=== PATIENT | female | born 1990 | race Caucasian/White ===

== ENCOUNTER 2023-12-29 07:36 | Emergency (ER) | payer BC, SELFPAY ==
[2023-12-29 07:50] VITALS: BP 122/70
--- NOTE | 2023-12-29 08:19 | ED.GENMED ---
History of Present Illness
General
Chief Complaint: Jaw Pain
Source: patient
Exam Limitations: none
Time Seen by Provider: 12/29/23 07:57
Nursing documentation reviewed up to this point in time: agreed with
Travel History
Have you had any contact with someone who has COVID-19?: No
Do you have any symptoms of coronavirus? Fever > 100 degrees, chills, cough, shortness of breath, sore throat, loss of taste or smell, muscle aches, or headache?: No
History of Present Illness
History of Present Illness:
33-year-old female with no significant chronic medical issues presents for evaluation of right jaw pain. Patient reports that she was laying in bed leaning on her left arm against her jaw; she said she yawned and felt a click and pain in the right
side of her jaw and has lost some fluency with movement of the jaw since. She is concerned that she dislocated her jaw. She denies similar symptoms in the past. She denies any other complaints.
Past History
Past History
ED Past Medical History: None
ED Past Surgical History: None
Social History
Tobacco: Non-smoker
Alcohol: None
Drug: None
Personal:
Living: with family
Employment: Not employed
Family History
Family History: Other (Noncontributory)
Review of Systems
Review of Systems
All Other Systems: ROS reviewed and negative except as documented in HPI and ROS
EENT: Reports other (Jaw pain)
Phy Exam
Physical Exam
Physical Exam:
General: Well appearing and non-toxic
HEENT: protecting airway; patient is sitting with her teeth somewhat clenched but is able to fully open the mouth and close with force against a tongue depressor; she has some tenderness of the right TMJ no palpable dislocation; no swelling of the
face on the right side; no skin changes on the right face
Neck: appears supple
CV: No evidence of cyanosis
Resp: No accessory muscle use
Abd: Non-distended
Extremities: No deformities
Neuro: Alert
Psych: Normal affect
Skin: Intact
Scores
Heart Failure Risk
Heart Failure Risk Score: Not Applicable
Heart Score for Chest Pain Patients
STEMI patient?: Not applicable
Withdrawal Assessment of Alcohol
Withdrawal Assessment Completed?: Not applicable
Course
Orders/Labs/Results
Orders:
Orders
12/29/23 08:04
CR Jaw/mandible Comp Min 4 Vw* Urgent
Comment:
Reason For Exam: right TMJ pain--c/f dislocation
12/29/23 09:18
Ketorolac [Toradol] 30 mg IM NOW STA
Vital Signs
Initial and Last Documented VS:
Initial Vital Signs
Temp Pulse Resp BP Pulse Ox
36.7 C 60 16 122/70 98
12/29/23 07:50 12/29/23 07:50 12/29/23 07:50 12/29/23 07:50 12/29/23 07:50
Last Documented Vital Signs
Temp Pulse Resp BP Pulse Ox
36.7 C 60 16 122/70 98
12/29/23 07:50 12/29/23 07:50 12/29/23 07:50 12/29/23 07:50 12/29/23 07:50
MDM/Problems Addressed
Differential Diagnosis Includes:
Jaw dislocation, jaw subluxation, TMJ
MDM/Problems Addressed:
33-year-old female presents with right-sided jaw pain after yawning this morning. She is concerned for possible dislocation. No palpable or obvious dislocation on exam will check an x-ray to evaluate. Reassess after the above.
X-ray shows no evidence of mandibular dislocation. Will treat with NSAIDs for TMJ dysfunction. Will refer to oral surgeon as needed outpatient. She feels comfortable with this plan. Spoke about return precautions and all questions answered.
*Radiology
Radiology exam reviewed: preliminary read by ED provider
*Pulse Oximetry
Patient hypoxic: no
*Critical Care Note
Total Time (30-74mins, 75-104mins- exclusive of procedures): Not Applicable
Data Reviewed
Source: patient
ED Attending Note
-
Portions of this chart may have been created with voice recognition software.� Occasional wrong word or��sound alike� substitutions may have occurred due to the inherent limitations of voice recognition software.
Discharge Plan
Departure
Patient Disposition: Home (Routine Discharge)
Date of Disposition: 12/29/23
Time of Disposition: 09:20
Patient with high blood pressure during this ER visit?: No
Discharge Problem:
TMJ arthralgia
Instructions: Temporomandibular Joint (TMJ) Disorders (DC)
Prescriptions:
No Action
acetaminophen 325 mg Tablet
650 mg PO Q4HPRN PRN (Reason: mild pain) Qty: 20 0RF
ibuprofen 600 mg Tablet
600 mg PO Q6HPRN PRN (Reason: moderate pain/cramps) Qty: 20 0RF
Referrals:
Precious Ness CRNP [Family Provider] -
Raven Fontaine DDS [Active] - As needed (Oral surgeon)
Activity Restrictions/Additional Instructions:
Thank you for visiting the Emergency Department at [facility].
1. Please schedule a follow up appointment as directed. Call first thing tomorrow morning to make an appointment.
2. If indicated, please take your medications as instructed and indicated on discharge paperwork.
3. If any of your symptoms do not improve, or persist, or become more severe within 6-12 hours, please return to the emergency department for further care.
4. Please return to the emergency department if you develop a headache, neck pain/stiffness, fever greater than 100.4F, chest pain, shortness of breath, persistent nausea, vomiting, slurred speech, difficulty walking, numbness/tingling, weakness,
signs of infection or any other symptoms that are worrisome to you.
Please call [phone] if you have any questions.
Interventions
Interventions:
*Risk Screen - Suicide Last Done: 12/29/23 08:58
*General Assessment Last Done: 12/29/23 08:58
*Neglect/Abuse Screening Last Done: 12/29/23 08:58
ED- Fall Risk Assessment Last Done: 12/29/23 08:58
*ED COVID-19 Vaccine History Last Done: 12/29/23 07:50
ED-EENT Assessment Last Done: 12/29/23 08:58
ED- Cardiac Assessment Last Done: 12/29/23 08:58
[2023-12-29 08:58] VITALS: BMI 25.6
[2023-12-29] MEDS: TORADOL 30 MG IM (10:24)
[2023-12-29 10:31] VITALS: BP 112/78
== END 2023-12-29 10:36 | disposition home or self-care (01) ==
LOC: EMR 07:36
PROVIDERS: EMERGENCY PHYSICIAN Emergency Medicine; FAMILY PHYSICIAN Nurse Practitioner Adult Health
DX: M26.621 Arthralgia of right temporomandibular joint (principal); Z88.8 Allergy status to other drugs, medicaments and biological substances
CPT/HCPCS: 99284; 96372; 70110

== ENCOUNTER → 2024-12-25 14:23 | Outpatient (REF) | payer BC, SELFPAY | LOC: PNTC 14:23 | PROVIDERS: ATTENDING PHYSICIAN Obstetrics & Gynecology | DX: Z36.0 Encounter for antenatal screening for chromosomal anomalies (principal) | CPT/HCPCS: 76805 ==

== ENCOUNTER → 2025-02-19 14:33 | Outpatient (REF) | payer BC, SELFPAY | LOC: PNTC 14:33 | PROVIDERS: ATTENDING PHYSICIAN Student in an Organized Health Care Education/Training Program | DX: Z34.90 Encounter for supervision of normal pregnancy, unspecified, unspecified trimester (principal) | CPT/HCPCS: 36415; 86850; 86900; 86901; 96372; J2790 ==

== ENCOUNTER 2025-05-05 06:58 | Observation (INO) | payer BC, SELFPAY ==
[2025-05-05 07:20] VITALS: BP 130/63; BMI 33.3
== END 2025-05-05 10:36 | disposition home or self-care (01) ==
LOC: LDRP 06:58
PROVIDERS: ADMITTING PHYSICIAN Obstetrics & Gynecology
DX: O47.1 False labor at or after 37 completed weeks of gestation (principal); Z3A.38 38 weeks gestation of pregnancy; Z88.1 Allergy status to other antibiotic agents
CPT/HCPCS: 80306; G0378

== ENCOUNTER 2025-05-09 22:23 | Inpatient (IN) | payer BC, SELFPAY ==
[2025-05-09 22:44] VITALS: BP 123/73; BMI 33.3
[2025-05-09 23:58] LABS: Hematocrit 35.2 % (37.0-47.0); Hemoglobin 12.1 g/dL (12.0-16.0); Mean Corp Hgb Conc. 34.4 g/dL (33.0-37.0); Mean Corpuscular Volume 93.4 fL (81.0-99.0); Nucleated Red Blood Cells % 0 %; Platelet Count 168 10^3/uL (130-400); Red Cell Dist. Width 12.4 % (11.5-14.5)
[2025-05-10] MEDS: LR 1000 IV (03:55)
[2025-05-10] MEDS: SUBLIMAZE 100 MCG EPIDURAL (04:13)
[2025-05-10] MEDS: FENTANYL/BUPIVACAINE 100 EPIDURAL (04:14)
[2025-05-10] MEDS: PITOCIN 30 UNITS/NSS 500 ML IV (05:30)
[2025-05-10] MEDS: METHERGINE INJECTION 0.2 MG IM (06:23)
[2025-05-10] MEDS: TRANEXAMIC ACID 100 IV (06:25)
[2025-05-10] MEDS: ZOFRAN 4 MG IV (07:34)
[2025-05-10] MEDS: COLACE PO (07:48)
[2025-05-10] MEDS: PRENATAL PLUS PO (07:48)
[2025-05-10] MEDS: TYLENOL 650 MG PO ×3 (09:15→20:11)
[2025-05-10] MEDS: MOTRIN 600 MG PO ×2 (11:57→20:12)
[2025-05-10] MEDS: COLACE 100 MG PO (20:12)
[2025-05-11] MEDS: TYLENOL 650 MG PO ×2 (04:17→12:00)
[2025-05-11] MEDS: MOTRIN 600 MG PO ×2 (04:18→12:00)
[2025-05-11 04:43] LABS: Hematocrit 30.9 % (37.0-47.0); Hemoglobin 10.5 g/dL (12.0-16.0)
[2025-05-11] MEDS: PRENATAL PLUS 1 TABLET PO (08:30)
[2025-05-11] MEDS: FEOSOL 325 MG PO (08:30)
[2025-05-11] MEDS: COLACE 100 MG PO (08:30)
[2025-05-11] MEDS: ADACEL 0.5 ML IM (11:58)
[2025-05-12 17:15] LABS: Syphilis/T. pallidum Ab Reflex Negative (Negative)
== END 2025-05-11 13:33 | disposition home or self-care (01) | DRG 806 ==
LOC: LDRP 22:23
PROVIDERS: ADMITTING PHYSICIAN Obstetrics & Gynecology
PROC: 10E0XZZ Delivery of Products of Conception, External Approach (ICD-10-PCS; 2025-05-10)
PROC: 0HQ9XZZ Repair Perineum Skin, External Approach (ICD-10-PCS; 2025-05-10)
PROC: 3E0234Z Introduction of Serum, Toxoid and Vaccine into Muscle, Percutaneous Approach (ICD-10-PCS; 2025-05-11)
DX: O69.82X0 Labor and delivery complicated by other cord entanglement, without compression, not applicable or unspecified (principal); O72.1 Other immediate postpartum hemorrhage; Z37.0 Single live birth; Z3A.39 39 weeks gestation of pregnancy; O70.0 First degree perineal laceration during delivery; O26.893 Other specified pregnancy related conditions, third trimester; Z67.11 Type A blood, Rh negative; Z23 Encounter for immunization
CPT/HCPCS: 85014; 85018; 85025; 86780; 86850; 86900; 86901; 90715

== ENCOUNTER 2025-07-10 09:09 | Inpatient (IN) | payer BC, SELFPAY ==
[2025-07-10 02:57] VITALS: BP 128/81
[2025-07-10 03:33] LABS: Urine Character Clear (Clear)
--- NOTE | 2025-07-10 03:42 | ED.GENMED ---
History of Present Illness
<Alberto Mcclain Jr., PA-C - Last Filed: 07/12/25 20:32>
General
Chief Complaint: Abdominal Pain
Source: patient
Exam Limitations: none
Time Seen by Provider: 07/10/25 03:17
Nursing documentation reviewed up to this point in time: agreed with
History of Present Illness
History of Present Illness:
34-year-old female presenting to the emergency department today with concerns of upper abdominal pain rating to the back that woke her from her sleep about 2 hours ago. Associated nausea no vomiting no diarrhea had a uncomplicated vaginal delivery
2 months ago.
Past History
<Alberto Mcclain Jr., PA-C - Last Filed: 07/12/25 20:32>
Past History
ED Past Medical History: None
ED Past Surgical History: None
Social History
Tobacco: Non-smoker
Alcohol: None
Drug: None
Personal:
Living: with family
Employment: Not employed
Family History
Family History: Other (Noncontributory)
Review of Systems
<Alberto Mcclain Jr., PA-C - Last Filed: 07/12/25 20:32>
Review of Systems
Allergies reviewed?: Yes
All Other Systems: ROS reviewed and negative except as documented in HPI and ROS
Phy Exam
<Alberto Mcclain Jr., PA-C - Last Filed: 07/12/25 20:32>
Physical Exam
Physical Exam:
GENERAL: Alert , in no apparent distress
EYE: pupils equal and reactive
NECK: Supple, no significant adenopathy.
ENT: o/p clr, mmm.
CARDIAC: Regular rate and rhythm .
LUNGS: Clear breath sounds bilaterally, no acute respiratory distress, no wheezes/rales/rhonchi
ABDOMEN: Epigastric abdominal pain to palpation no significant right upper quadrant pain negative Marina's remainder of the abdomen soft
NEUROLOGICAL: Alert and oriented, no focal neuro deficits
SKIN: Warm and dry, skin intact.
MUSCULOSKELETAL: No edema, well perfused.
PSYCH: Normal and appropriate interaction.
Course
<Alberto Mcclain Jr., PA-Venancio - Last Filed: 07/12/25 20:32>
Orders/Labs/Results
Orders:
Orders
07/10/25 03:26
Urinalysis Reflex To Culture Urgent
Date Specimen was Collected: 07/10/25
Time Specimen was Collected: 03:24
Urine Microscopic Reflex Cult Urgent
Urine Culture Urgent
JUWAN Source: U
Specimen Description:
Date Specimen was Collected: 07/10/25
Time Specimen was Collected: 03:24
07/10/25 03:29
Ketorolac [Toradol] 7.5 mg IV NOW STA
Ondansetron Injectable [Zofran] 4 mg IV NOW STA
07/10/25 03:31
0.9% Sodium Chloride 1000 ml [Nss] 1,000 ml IV BOLUS
Test Result ONCE
07/10/25 03:36
Complete Blood Count/With Diff Urgent
Comprehensive Metabolic Panel Urgent
HCG, Serum Qualitative Screen Urgent
Lipase Urgent
07/10/25 04:04
Famotidine [Pepcid] 20 mg IV NOW STA
07/10/25 04:54
US Abdomen Complete/Upper Urgent
Comment:
Reason For Exam: RUQ pain
07/10/25 Breakfast
NPO
Allow oral meds: Yes
Allow clear liquids: No
NPO with Ice Chips: No
07/10/25 07:59
Mrcp Without MR [MR Mrcp Without] Routine
Comment:
Reason For Exam: abd pain, dilated CBD
Recent pill cam endoscopy?: No
07/10/25 08:37
GASTROINTESTINAL CONSULT Routine
Consulting Provider: Kami Benoit
Was physician already notified: Yes
Reason for consult: billiary colic
07/10/25 08:39
Admit/Transfer Patient As Directed
Co-Sign Provider:
Level of Care: Inpatient admission
Assign to:: Medical/Surgical
Physician / Group: Finn
Diagnosis: biliary colic
Reason for Hospitalization: biliary colic
Expected length of stay greater than two midnights?: Yes
ELOS- Estimated Length of Stay in days: 2
I certify the patient meets the requirements for IP care: Yes
PRN Pain Medication Management As Directed
May give lesser potent ordered pain med per pt: Yes
preference::
Protocol:: Medication orders for pain may be administered in a
manner that supports deferring to patient preference
when the pt is:
- Requesting an ordered lesser potent pain medication.
Least to most potent pain medications are defined
as: acetaminophen < NSAID < tramadol < opioids
(morphine, oxycodone, hydromorphone).
- Requesting a lesser dose of the same medication IF
ORDERED.
- Requesting a less intrusive route of administration
if both routes are prescribed by the provider (PO <
IV).
07/10/25 08:40
Code Status As Directed
Resuscitation Status: Full Code
07/10/25 08:44
Ondansetron Injectable [Zofran] 4 mg IV Q8HPRN PRN
07/10/25 08:51
Consult Surgery [SURGICAL CONSULT] Routine
Consulting Provider: Bassam Whitlock
Was physician already notified: Yes
Reason for consult: biliary colic
07/10/25 09:00
Flush (0.9% Sodium Chloride) [Flush (Nss)] See Dose Instructions IV PER PROTOCOL
07/10/25 11:45
0.9% Sodium Chloride 1000 ml [Nss] 1,000 ml IV 100 mls/hr
Acetaminophen [Tylenol] 650 mg PO Q4HPRN PRN
Bisacodyl [Dulcolax] 10 mg RECTAL [id number] PRN
Docusate W/Senna [Senokot-S] 1 tablet PO BIDPRN PRN
Ketorolac [Toradol] 10 mg IV Q6HPRN PRN
Morphine Sulfate 2 mg IV Q4HPRN PRN
Polyethylene Glycol Powder [Miralax] 17 grams PO DAILYPRN PRN
07/10/25 11:45
Activity As Directed
Activity Level: Out of Bed-Early Mobility
Pneumatic Compression Sleeves As Directed
Type: Knee high
Vital Signs As Directed
Frequency: Per unit guidelines
DX Deep Vein Thrombosis Video Routine
07/10/25 12:00
Sertraline HCl [Zoloft] 50 mg PO DAILY@1200
Abnormal Lab Results
07/10/25 07/10/25
03:26 03:36
Chloride 108 H mmol/L
(98-107)
Leukocyte Esterase Rfl 2+ A
(Negative)
Urine Bacteria (Reflex) Few A
(Negative)
Urine Albumin (Reflex) 1+ A
(Neg - Trace)
07/10/25 03:36
07/10/25 03:36
Vital Signs
Initial and Last Documented VS:
Initial Vital Signs
Temp Pulse Resp BP Pulse Ox
98.7 F 78 18 128/81 96
07/10/25 02:57 07/10/25 02:57 07/10/25 02:57 07/10/25 02:57 07/10/25 02:57
Last Documented Vital Signs
Temp Pulse Resp BP Pulse Ox
97.8 F 58 16 119/72 98
07/10/25 18:52 07/10/25 18:52 07/10/25 18:52 07/10/25 18:52 07/10/25 18:52
<AILIN Ayala - Last Filed: 07/10/25 07:36>
Orders/Labs/Results
Orders:
Orders
07/10/25 03:26
Urinalysis Reflex To Culture Urgent
Date Specimen was Collected: 07/10/25
Time Specimen was Collected: 03:24
Urine Microscopic Reflex Cult Urgent
Urine Culture Urgent
JUWAN Source: U
Specimen Description:
Date Specimen was Collected: 07/10/25
Time Specimen was Collected: 03:24
07/10/25 03:29
Ketorolac [Toradol] 7.5 mg IV NOW STA
Ondansetron Injectable [Zofran] 4 mg IV NOW STA
07/10/25 03:31
0.9% Sodium Chloride 1000 ml [Nss] 1,000 ml IV BOLUS
Test Result ONCE
07/10/25 03:36
Complete Blood Count/With Diff Urgent
Comprehensive Metabolic Panel Urgent
HCG, Serum Qualitative Screen Urgent
Lipase Urgent
07/10/25 04:04
Famotidine [Pepcid] 20 mg IV NOW STA
07/10/25 04:54
US Abdomen Complete/Upper Urgent
Comment:
Reason For Exam: RUQ pain
07/10/25 Breakfast
NPO
Allow oral meds: Yes
Allow clear liquids: No
NPO with Ice Chips: No
07/10/25 07:59
Mrcp Without MR [MR Mrcp Without] Routine
Comment:
Reason For Exam: abd pain, dilated CBD
Recent pill cam endoscopy?: No
07/10/25 08:37
GASTROINTESTINAL CONSULT Routine
Consulting Provider: Kami Benoit
Was physician already notified: Yes
Reason for consult: billiary colic
07/10/25 08:39
Admit/Transfer Patient As Directed
Co-Sign Provider:
Level of Care: Inpatient admission
Assign to:: Medical/Surgical
Physician / Group: Finn
Diagnosis: biliary colic
Reason for Hospitalization: biliary colic
Expected length of stay greater than two midnights?: Yes
ELOS- Estimated Length of Stay in days: 2
I certify the patient meets the requirements for IP care: Yes
PRN Pain Medication Management As Directed
May give lesser potent ordered pain med per pt: Yes
preference::
Protocol:: Medication orders for pain may be administered in a
manner that supports deferring to patient preference
when the pt is:
- Requesting an ordered lesser potent pain medication.
Least to most potent pain medications are defined
as: acetaminophen < NSAID < tramadol < opioids
(morphine, oxycodone, hydromorphone).
- Requesting a lesser dose of the same medication IF
ORDERED.
- Requesting a less intrusive route of administration
if both routes are prescribed by the provider (PO <
IV).
07/10/25 08:40
Code Status As Directed
Resuscitation Status: Full Code
07/10/25 08:44
Ondansetron Injectable [Zofran] 4 mg IV Q8HPRN PRN
07/10/25 08:51
Consult Surgery [SURGICAL CONSULT] Routine
Consulting Provider: Bassam Whitlock
Was physician already notified: Yes
Reason for consult: biliary colic
07/10/25 09:00
Flush (0.9% Sodium Chloride) [Flush (Nss)] See Dose Instructions IV PER PROTOCOL
07/10/25 11:45
0.9% Sodium Chloride 1000 ml [Nss] 1,000 ml IV 100 mls/hr
Acetaminophen [Tylenol] 650 mg PO Q4HPRN PRN
Bisacodyl [Dulcolax] 10 mg RECTAL [id number] PRN
Docusate W/Senna [Senokot-S] 1 tablet PO BIDPRN PRN
Ketorolac [Toradol] 10 mg IV Q6HPRN PRN
Morphine Sulfate 2 mg IV Q4HPRN PRN
Polyethylene Glycol Powder [Miralax] 17 grams PO DAILYPRN PRN
07/10/25 11:45
Activity As Directed
Activity Level: Out of Bed-Early Mobility
Pneumatic Compression Sleeves As Directed
Type: Knee high
Vital Signs As Directed
Frequency: Per unit guidelines
DX Deep Vein Thrombosis Video Routine
07/10/25 12:00
Sertraline HCl [Zoloft] 50 mg PO DAILY@1200
Abnormal Lab Results
07/10/25 07/10/25
03: 03:36
Chloride 108 H mmol/L
(98-107)
Leukocyte Esterase Rfl 2+ A
(Negative)
Urine Bacteria (Reflex) Few A
(Negative)
Urine Albumin (Reflex) 1+ A
(Neg - Trace)
07/10/25 03:36
07/10/25 03:36
Vital Signs
Initial and Last Documented VS:
Initial Vital Signs
Temp Pulse Resp BP Pulse Ox
98.7 F 78 18 128/81 96
07/10/25 02:57 07/10/25 02:57 07/10/25 02:57 07/10/25 02:57 07/10/25 02:57
Last Documented Vital Signs
Temp Pulse Resp BP Pulse Ox
97.8 F 58 16 119/72 98
07/10/25 18:52 07/10/25 18:52 07/10/25 18:52 07/10/25 18:52 07/10/25 18:52
<Alberto Mcclain Jr. PAFerdinandC - Last Filed: 07/12/25 20:32>
MDM/Problems Addressed
MDM/Problems Addressed:
34-year-old female presenting to the emergency department today with concerns of upper abdominal pain rating to her back that woke her from her sleep a few hours ago. Associated nausea no vomiting. Here reproducible to the epigastric region.
Vital signs normal.
<Alberto Mcclain Jr., PA-C - Last Filed: 07/12/25 20:32>
*Pulse Oximetry
SaO2: 96
Oxygen Mode of Delivery: Room air
<AILIN Ayala - Last Filed: 07/10/25 07:36>
*Radiology
Radiology exam reviewed: radiology read reviewed
*Pulse Oximetry
Patient hypoxic: no
*Critical Care Note
Total Time (30-74mins, 75-104mins- exclusive of procedures): Not Applicable
<AILIN Ayala - Last Filed: 07/10/25 07:36>
Update Note
Update Note:
Received signout from patient. Patient currently feels nauseous still. On exam diver tender in the epigastric area. Denies any chest pain shortness of breath .
[facility] radiology report shows enlargement of the common bile duct at 10 mm. Gallbladder is fully contracted. Patient's labs unremarkable however with continued pain nausea and CBD dilation would recommend admission may need MRCP.
ED Attending Note
<Alberto Mcclain Jr., PA-C - Last Filed: 07/12/25 20:32>
-
Portions of this chart may have been created with voice recognition software.� Occasional wrong word or��sound alike� substitutions may have occurred due to the inherent limitations of voice recognition software.
Discharge Plan
Departure
Patient Disposition: Admit
Date of Disposition: 07/10/25
Time of Disposition: 07:35
Admit to: Med/Surg
Admit to doctor: hospitaist
Presentation/result/management discussed w/ accepting MD/DO: Hospitalist
Patient with high blood pressure during this ER visit?: No
Covid-19: Not Applicable
Discharge Problem:
Acute upper abdominal pain
Interventions
Interventions:
*Risk Screen - Suicide Last Done: 07/10/25 02:57
*General Assessment Last Done: 07/10/25 03:40
*Neglect/Abuse Screening Last Done: 07/10/25 03:25
*ED- Fall Risk Assessment Last Done: 07/10/25 03:25
*ED COVID-19 Vaccine History Last Done: 07/10/25 03:25
*Nursing Disposition Last Done: 07/10/25 11:42
RA-[id number]-Gudqcexkxk Assessment Last Done: 07/10/25 03:40
Discharge Date and Time
Discharge Date/Time: 07/10/25 11:42
[2025-07-10 03:50] LABS: Hematocrit 41.4 % (37.0-47.0); Hemoglobin 14.0 g/dL (12.0-16.0); Mean Corp Hgb Conc. 33.8 g/dL (33.0-37.0); Mean Corpuscular Volume 90.2 fL (81.0-99.0); Nucleated Red Blood Cells % 0 %; Platelet Count 221 10^3/uL (130-400); Red Cell Dist. Width 11.6 % (11.5-14.5)
[2025-07-10 03:55] LABS: HCG, Serum Qualitative Screen Negative
[2025-07-10 04:00] LABS: ALT (SGPT) 33 U/L (0-35); AST (SGOT) 27 U/L (14-36); Albumin 4.5 g/dl (3.5-5.0); Alkaline Phosphatase 84 U/L (38-126); Blood Urea Nitrogen 15 mg/dl (7-17); Calcium 9.2 mg/dl (8.4-10.2); Carbon Dioxide 24 mmol/L (22-30); Chloride 108 mmol/L (98-107); Glucose 99 mg/dl (70-99); Lipase 278 U/L (23-300); Potassium 4.1 mmol/L (3.5-5.1); Sodium 140 mmol/L (135-145); Total Protein 7.2 g/dl (6.3-8.2); eGFR > 60.00
[2025-07-10] MEDS: ZOFRAN 4 MG IV ×2 (04:03→15:36)
[2025-07-10] MEDS: NSS 1000 IV ×2 (04:03→12:08)
[2025-07-10 04:04] LABS: Urine Squamous Cell 26-30 /LPF (Few)
[2025-07-10 04:05] LABS: Urine Red Blood Cell None Seen /HPF (0-2)
[2025-07-10] MEDS: PEPCID 20 MG IV (04:10)
[2025-07-10 05:20] VITALS: BP 111/67
--- NOTE | 2025-07-10 08:42 | HPS.HSE ---
Family Physician
-
Family Physician: Precious Ness
Chief Complaint
-
abdominal pain
History of Present Illness
34yo F with PMHx of anxiety/depression d/o, currently , had vaginal delivery in May came with 1 day of epigastric sharp pain with nausea radiating to RUQ and back. No fevers, chills recently. Still hs her gallbladder. US done in ED
showed dilated CBD to 10mm and contracted gall bladder. LFT and lipase WNL.
Medical History
Past Medical History
Past Medical History: Reports Other
Additional Past Medical History:
see above
Past Surgical History: Reports None
Social History
Tobacco: Non-smoker
Alcohol: None
Drug: None
Family History
Family History: Not pertinent
Allergies / Home Medications
Allergies reflects when Allergies were last updated in [facility] [employer].
Home Medications with original date entered in [facility]
Allergy/Medication List:
Allergies
Allergy/AdvReac Type Severity Reaction Status Date / Time
moxifloxacin (From Vigamox) Allergy painfull-eye Verified 07/10/25 02:56
stopped
moving
Home Medications
calcium 600 mg (as carbonate)-vitamin D3 10 mcg (400 unit) tablet (Calcium 600 + D(3)) 1 tab PO DAILY 07/10/25
ferrous sulfate 325 mg (65 mg iron) tablet (iron) 325 mg PO DAILY 07/10/25
sertraline 50 mg tablet (Zoloft) 50 mg PO DAILY@1200 07/10/25
Review of Systems
-
History Source: Patient
A 12 point ROS was completed and negative except as noted: Yes
Abdomen/GI: Reports See HPI
Physical Exam
Vital Signs
Vital Signs
Temp Pulse Resp BP Pulse Ox
97.8 F 78 18 111/67 96
07/10/25 05:20 09/05/25 02:57 07/10/25 02:57 07/10/25 05:20 07/10/25 03:43
Physical Exam
General: Well Developed, Well Nourished and No Apparent Distress
HEENT: NormoCephalic, Anicteric and Moist mucous membranes
Respiratory: Clear; No Wheezes or Crackles
Cardiac: S1/S2 and Regular Rhythm; No Tachycardia
GI: Soft, Non Tender and Non Distended
Genito-urinary: No costovertebral tender
Musculoskeletal: No Clubbing, No Cyanosis and No Edema
Skin: Warm; No Rash or Jaundice
Neuro: Awake, Alert, Oriented and AO x 3
Psych: Calm
Laboratory Results
-
07/10/25 03:36
07/10/25 03:36
Laboratory Results
Total Bilirubin 0.5 mg/dl (0.2-1.3) 07/10/25 03:36
AST 27 U/L (14-36) 07/10/25 03:36
ALT 33 U/L (0-35) 07/10/25 03:36
Alkaline Phosphatase 84 U/L (38-126) 07/10/25 03:36
Lipase 278 U/L (23-300) 07/10/25 03:36
Data Reviewed
-
Lab Data: Labs Reviewed by me
Impression/Plan
-
A/P:
#Biliary colic, r/o choledocholithiasis
MRCP
GI consult
GenSx consult
IVF
Pain mgmt
Kepp NPO for possible intervention
Hld off Abx until results of MRCP as no fever or leukocytosis
#Anxiety/depression d/o
#LAINE
cont home meds
DVT ppx SCDs
Full code
I have spent at lest 78min reviewing chart, test results, communication with consultants and providing direct patient care
--- NOTE | 2025-07-10 08:42 | CON.GI ---
Addendum entered and electronically signed by Kami Benoit DO 07/10/25 15:53:
MRCP resulted with no choledocholithiasis. Her gallbladder is diseased. Management per surgery
GI will sign off
Original Note:
Consultation
-
Date/Time Consultation Requested: 07/10/2025
Date/Time Consultation Performed: 07/10/2025
Requesting Provider: ER
Performing Provider: Dr. Benoit
Reason for Consultation: Abdominal pain
Medical History
Chief Complaint / HPI
Chief Complaint: . Epigastric pain and nausea
History of Present Illness:
Patient is a 34-year-old female with history of obesity who recently had a vaginal that was uncomplicated on 05/09/2025 who comes in with significant epigastric pain and nausea with normal LFTs and a dilated common bile duct.
Patient was in normal state of health then awoke last night with significant epigastric pain that lasted hours that radiated into her right upper quadrant and back. She has never had symptoms like this before. On her way to the hospital she had
severe nausea but no vomiting. Review of imaging from 2020 shows a dilated common bile duct at that time. Her liver enzymes are normal. She states the pain is still lingering but it is not as intense. She has no fever. No leukocytosis.
Abdominal ultrasound was done last night that I reviewed myself. The read is not back yet but her, bile duct is 1 cm and her gallbladder is contracted. No choledocholithiasis seen.
Patient's sister also had gallbladder disease.
She denies any other GI symptoms. She does take oral iron and occasional stool softener. No NSAID use. She is breast-feeding.
Denies dysphagia, chronic nausea or vomiting, no chronic abdominal pain. No chronic diarrhea. Recently started Zoloft as her only new medication.
No prior abdominal surgeries
Past Medical History
Past Medical History: Other ( depression)
Past Surgical History: None
Social History
Tobacco: Non-Smoker
Alcohol: None
Drug: None
Personal:
Living: With Family
Family History
Family History: Other (Sister with gallbladder disease)
Allergies / Home Medications
Allergy/AdvReac Type Severity Reaction Status Date / Time
moxifloxacin (From Vigamox) Allergy painfull-eye Verified 07/10/25 02:56
stopped
moving
�Medication �Instructions �Recorded
calcium 600 mg (as 1 tab PO DAILY 07/10/25
carbonate)-vitamin D3 10 mcg (400
unit) tablet (Calcium 600 + D(3))
ferrous sulfate 325 mg (65 mg 325 mg PO DAILY 07/10/25
iron) tablet (iron)
sertraline 50 mg tablet (Zoloft) 50 mg PO DAILY@1200 07/10/25
Review of Systems
-
History Source: Patient
All other systems: A 12 pt ROS was Negative except as stated above in HPI
Vital Signs
Temp Pulse Resp BP Pulse Ox
97.8 F 78 18 111/67 96
07/10/25 05:20 07/10/25 02:57 07/10/25 02:57 07/10/25 05:20 07/10/25 03:43
Physical Exam
Exam
General: Well Developed, Well Nourished and No Apparent Distress
Respiratory: Clear
Cardiac: S1/S2
GI: Soft and Non Tender
Neuro: AO x 3
Psych: Calm
Results
WBC 5.3 10^3/uL (4.8-10.8) 07/10/25 03:36
Hgb 14.0 g/dL (12.0-16.0) 07/10/25 03:36
Hct 41.4 % (37.0-47.0) 07/10/25 03:36
MCV 90.2 fL (81.0-99.0) 07/10/25 03:36
Plt Count 221 10^3/uL (130-400) 07/10/25 03:36
Absolute Neuts (auto) 3.2 10^3/uL (1.4-6.5) 07/10/25 03:36
Sodium 140 mmol/L (135-145) 07/10/25 03:36
Potassium 4.1 mmol/L (3.5-5.1) 07/10/25 03:36
Chloride 108 mmol/L (98-107) H 07/10/25 03:36
Carbon Dioxide 24 mmol/L (22-30) 07/10/25 03:36
BUN 15 mg/dl (7-17) 07/10/25 03:36
Creatinine 0.8 mg/dL (0.6-1.0) 07/10/25 03:36
Calcium 9.2 mg/dl (8.4-10.2) 07/10/25 03:36
Total Bilirubin 0.5 mg/dl (0.2-1.3) 07/10/25 03:36
AST 27 U/L (14-36) 07/10/25 03:36
ALT 33 U/L (0-35) 07/10/25 03:36
Alkaline Phosphatase 84 U/L (38-126) 07/10/25 03:36
Lipase 278 U/L (23-300) 07/10/25 03:36
Diagnostic Image Results:
Abdominal ultrasound from 07/09/2025: Contracted gallbladder, common bile duct 1 cm with no apparent stones
Prior GI Procedures:
None
EGD:
Colonoscopy:
Assessment / Plan
-
Patient is a 34-year-old otherwise healthy female who had a recent vaginal delivery on 05/09/2025 who comes in with epigastric pain into the right upper quadrant and back with significant nausea without vomiting with no fever, normal LFTs and
ultrasound showing a chronically dilated common bile duct and a contracted gallbladder
# Epigastric pain -clinically this is biliary colic
-- She has normal LFTs so highly unlikely there is a retained stone especially in the setting of her bile duct being dilated back in 2020
-- MRCP was ordered
-- I consulted and contacted general surgery
-- She is afebrile, no leukocytosis
-- Start once daily PPI, n.p.o.
Data Reviewed
-
Radiology: Image Personally Visualized and interpreted, Discussed with Physician and Discussed with Patient
-
-
Thank you for consultation and allowing me to participate in the patient's care. Please call the commission sales associate GI physician during the after hours with any questions or concerns.
--- NOTE | 2025-07-10 09:53 | CON.GS ---
Addendum entered and electronically signed by Bassam Whitlock MD 07/10/25 16:13:
I saw and examined the patient independently.
The resident's documentation was reviewed and I agree with the note, assessment and plan except where noted below.
Comment: This is a 34-year-old female recent who presents with 1 day history of fairly intense epigastric and right upper quadrant pain in the setting of a somewhat similar episode after giving 5 weeks ago that lasted several days.
Her exam currently is completely benign. She has no tenderness palpation, no fever, vitals normal. Blood work also completely unremarkable. An ultrasound was performed which showed a contracted gallbladder, no stones on this or prior imaging.
She underwent an MRI which showed once again a contracted gallbladder without stones with significant surrounding inflammation and was read as 'gangrenous cholecystitis'. She also was noted to have some splenomegaly which is new compared to her
scan from 2020. I discussed I discussed these findings with the patient and at the bedside and offered an inpatient HIDA scan/observation here in the hospital versus outpatient follow-up and the risks and benefits of each. After
consideration they elected to do outpatient follow-up to think is reasonable. We reviewed signs and symptoms to look out for that should prompt a return to the hospital.
Will get a Monospot test/EBV, CMV workup started as there are reported cases of viral cholecystitis which could be at play here and explain her very unusual presentation.
I will follow-up with her next week in the office with plans for an outpatient HIDA scan with ejection fraction.
No acute surgical intervention warranted at this time, dispo per primary. I do not see any role for antibiotics at this time.
I spent 75 minutes in total for the care of this patient today including direct patient care and counseling, reviewing labs, imaging, coordination of care, as well as documentation.
Original Note:
Consultation
-
Date/Time Consultation Performed: 07/10/2025 0930
Performing Provider: Scar Sullivan MD
Reason for Consultation: Abdominal pain
Medical History
-
Chief Complaint: Abdominal pain
History of Present Illness:
Patient is seen at the bedside with present after presenting to the ED with RUQ abdominal pain, which woke her up from sleep at 1:30 a.m. this morning. She describes the pain as 7/10 in intensity, sharp, primarily located in the RUQ,
constant, and radiating to the back. Patient tried to walk around and use the bathroom to ease the pain, but the pain persisted. After approximately an hour and a half, the intensity of the pain began to decline, and she became (and remains)
nauseous. No vomiting. At the bedside, the patient continues to have pain, but it is now 1/10 in intensity. Patient had one episode like this previously, which occurred a few days and resolved spontaneously after a couple of days.
Neither episode was associated with eating. Patient denies pale stools, dark urine, or jaundice. Patient's sister has also had similar episodes in the setting, with each episode resolving spontaneously after a couple hours. No prior
abdominal surgeries.
Past Medical History
Past Medical History: Psychiatric (Anxiety/depression)
Past Surgical History: Gynecological (Hymenectomy), Tonsilectomy and Other ([place] tooth extraction)
Social History
Tobacco: Non-Smoker
Alcohol: None
Drug: None
Personal:
Family History
Family History: Other (Sister with similar episodes of biliary colic)
Allergies / Home Medications
Allergy/AdvReac Type Severity Reaction Status Date / Time
moxifloxacin (From Vigamox) Allergy painfull-eye Verified 07/10/25 02:56
stopped
moving
�Medication �Instructions �Recorded �Confirmed �Type
calcium 600 mg (as 1 tab PO DAILY Supplement 07/10/25 07/10/25 History
carbonate)-vitamin D3 10 mcg (400
unit) tablet (Calcium 600 + D(3))
ferrous sulfate 325 mg (65 mg 325 mg PO DAILY Supplement 07/10/25 07/10/25 History
iron) tablet (iron)
sertraline 50 mg tablet (Zoloft) 50 mg PO DAILY@1200 [facility] 07/10/25 07/10/25 History
Review of Systems
-
A 10 point review of systems was completed, and was negative except as per HPI.
Physical Exam
Vital Signs
Temp Pulse Resp BP Pulse Ox
97.8 F 78 18 111/67 96
07/10/25 05:20 07/10/25 02:57 07/10/25 02:57 07/10/25 05:20 07/10/25 03:43
07/09/25 07/10/25 07/11/25
06:59 06:59 06:59
Actual Weight 84.3 kg
Lab Results
07/10/25 03:36
07/10/25 03:36
WBC 5.3 10^3/uL (4.8-10.8) 07/10/25 03:36
Hgb 14.0 g/dL (12.0-16.0) 07/10/25 03:36
Hct 41.4 % (37.0-47.0) 07/10/25 03:36
Plt Count 221 10^3/uL (130-400) 07/10/25 03:36
Abs Immat Gran (auto) 0.0 10^3/uL (0-0.05) 07/10/25 03:36
Neutrophils % 61.4 % (42.2-75.2) 07/10/25 03:36
Physical Exam
General: Well Developed, Well Nourished and No Apparent Distress; Negative Fever, Chills or Sweats
HEENT: Normocephalic, Anicteric and Atraumatic
GI: Soft, Non Tender, Non Distended and Other (Negative Marina sign; no rigidity, guarding, or rebound tenderness; no ecchymoses or erythema)
Skin: Warm and Dry
Neuro: Awake and AO x 3
Psych: Calm
Assessment / Plan
-
Assessment: Patient is a 34-year-old female (vaginal delivery in early May) who presented to the ED after being awoken from sleep at 01:30 a.m. this morning with sharp, constant RUQ abdominal pain, 7/10 intensity at onset declining to
1/10 when evaluated at bedside, radiating to the back, associated with nausea (no vomiting), and without association with eating. Labs on presentation are unremarkable, including no leukocytosis and LFTs WNL. Abdominal ultrasound revealed a mildly
dilated CBD of 11 mm, with the gallbladder poorly visualized. Suspected biliary colic, pending further workup.
AFVSS, no leukocytosis, normal LFTs
Benign abdominal exam, no jaundice or scleral icterus
Abdominal ultrasound (07/10): CBD 11 mm (minimally changed since 10 mm on CTAP in 2020); gallbladder poorly visualized, likely contracted; negative sonographic Marina's
MRCP pending
Plan:
MRCP for further elucidation of CBD dilatation, RUQ pain
Surgical recommendation pending MRCP result
[2025-07-10 12:00] VITALS: BP 122/76
[2025-07-10] MEDS: ZOLOFT 50 MG PO (12:11)
--- NOTE | 2025-07-10 12:46 | PTCARENOTE ---
Pt arrived 1145 from ED. Pt was able to ambulate to bed. VSS. IVF infusing. oriented to room and call falcon. at bedside. care ongoing
--- NOTE | 2025-07-10 14:07 | W.PN.UPDATE ---
Update Note
Progress Note Update
MRCP concerning for gangrenous cholecystitis
Zosyn
[facility] for further mgmt - service informed
[2025-07-10 15:23] VITALS: BP 116/74
[2025-07-10] MEDS: ZOSYN 50 IV (15:36)
--- NOTE | 2025-07-10 16:52 | W.DCSUMMARY ---
Addendum entered and electronically signed by Konrad Briseno MD 07/10/25 18:51:
#Splenomegaly
most likely related to fatty liver as CBC without blood cell abnormalities
Addendum entered and electronically signed by Konrad Briseno MD 07/10/25 18:50:
#Minimally elevated chlorine on CMP
no clinical importance, isolated finding
Original Note:
Discharge Summary
Discharge Data
Date of Admission: 07/10/25
Date of Discharge: 07/10/25
-
Pending Results: No
Hospital Course
34yo F with PMHx of anxiety/depression d/o, currently , had vaginal delivery in May came with 1 day of epigastric sharp pain with nausea radiating to RUQ and back lasted for 1.5h. No fevers, chills recently. Still hs her gallbladder.
US done in ED showed dilated CBD to 10mm and contracted gall bladder. LFT and lipase WNL. MRCP concerned for gangrenous cholecystitis, however after careful [facility] evaluation patient was provided with options for HIDA vs monitoring at home with early
[facility] outpatient visit next week. As per note from conversation with [facility] - patient decided to cont self monitoring at home and was counseled on symptoms that should prompt her visit to ED. With absent fever, leukocytosis and further RUQ pain -
Gen[facility] recommended EBV and CMV tests and stop Abx. Since patient is risk of empiric Abx with no suggestion to continue them by [facility] will overweight benefit. Medically stable to discharge home as per recommendations from [facility] with
outpatient f/u for elective cholecystectomy. Hemodynamically stable, pain free, afebrile bedside so reasonable for d/c for further monitoring at home if tolerated diet without symptoms. Same discussed with patient
I have spent at least 87min while caring for the patient on the day of admission
Patient was managed for:
#Biliary colic, possible cholecystitis, most likely viral
#Anxiety/depression d/o
#LAINE
Discharge Plan
-
Patient Disposition: Home (Routine Discharge)
Discharge Diagnosis/Procedures: RUQ pain
Diet: Regular
Referrals:
Precious Ness CRNP [Family Provider, General]
Bassam Whitlock MD [Active, Surgical] - in three to four days
Prescriptions:
Continued
ferrous sulfate [iron] 325 mg (65 mg iron) Tablet
325 mg PO DAILY
sertraline [Zoloft] 50 mg Tablet
50 mg PO DAILY@1200
calcium carbonate-vitamin D3 [Calcium 600 + D(3)] 600 mg-10 mcg (400 unit) Tablet
1 tab PO DAILY
Discharge Date and Time
Print Language: YORUBA
[2025-07-10 18:52] VITALS: BP 119/72
[2025-07-13 01:20] LABS: EBV-EA (D) Ab IgG <5.0 U/mL (<=8.9); EBV-NA IgG 55.2 U/mL (<=17.9); EBV-VCA IgG Antibodies 181.0 U/mL (<=17.9); EBV-VCA IgM Antibodies <10.0 U/mL (<=35.9)
== END 2025-07-10 19:20 | disposition home or self-care (01) | DRG 443 ==
LOC: 2 SOUTH 09:09
PROVIDERS: Physician Assistant; ADMITTING PHYSICIAN Internal Medicine; CONSULT PHYSICIAN Internal Medicine; CONSULT PHYSICIAN Surgery; EMERGENCY PHYSICIAN Student in an Organized Health Care Education/Training Program; FAMILY PHYSICIAN Nurse Practitioner Adult Health
DX: K76.0 Fatty (change of) liver, not elsewhere classified (principal); F41.9 Anxiety disorder, unspecified; K83.8 Other specified diseases of biliary tract; E78.5 Hyperlipidemia, unspecified; K81.9 Cholecystitis, unspecified; Z79.899 Other long term (current) drug therapy
CPT/HCPCS: 74181; 76700; 80053; 81003; 81015; 83690; 84703; 85025; 86308; 86645; 86663; 86664; 86665; 87086; 96374; 96375; 99285

== ENCOUNTER 2025-07-12 20:18 | Day surgery (SDC) | payer BC, SELFPAY ==
[2025-07-12 16:48] VITALS: BP 124/75
[2025-07-12 17:05] LABS: Hematocrit 40.7 % (37.0-47.0); Hemoglobin 13.7 g/dL (12.0-16.0); Mean Corp Hgb Conc. 33.7 g/dL (33.0-37.0); Mean Corpuscular Volume 90.0 fL (81.0-99.0); Nucleated Red Blood Cells % 0 %; Platelet Count 212 10^3/uL (130-400); Red Cell Dist. Width 11.5 % (11.5-14.5)
[2025-07-12 17:20] LABS: HCG, Serum Qualitative Screen Negative
[2025-07-12 17:26] LABS: ALT (SGPT) 55 U/L (0-35); AST (SGOT) 90 U/L (14-36); Albumin 4.4 g/dl (3.5-5.0); Alkaline Phosphatase 93 U/L (38-126); Blood Urea Nitrogen 17 mg/dl (7-17); Calcium 9.8 mg/dl (8.4-10.2); Carbon Dioxide 25 mmol/L (22-30); Chloride 107 mmol/L (98-107); Glucose 95 mg/dl (70-99); Potassium 3.9 mmol/L (3.5-5.1); Sodium 139 mmol/L (135-145); Total Protein 7.2 g/dl (6.3-8.2); eGFR > 60.00
--- NOTE | 2025-07-12 18:59 | ED.GENMED ---
History of Present Illness
General
Chief Complaint: Abdominal Symptoms
Time Seen by Provider: 07/12/25 18:24
History of Present Illness
History of Present Illness:
34-year-old female presents to the emergency department for evaluation of recurrent right upper quadrant abdominal pain. She was recently mated to this hospital for similar complaint at which time she had MRI imaging that suggested gangrenous
cholecystitis. She was evaluated by general surgery but because her pain had completely resolved she was given the option for inpatient HIDA scan versus outpatient workup. The patient opted for outpatient workup however today after eating a meal
of sweet potatoes hard-boiled eggs avocado and mayonnaise, the patient's pain recurred and was much more severe than it had been previously. Pain is somewhat improved as of this time, currently 4 out of 10. She is approximately 5 to 6 weeks
Past History
Past History
ED Past Medical History: None
ED Past Surgical History: None
Social History
Tobacco: Non-smoker
Alcohol: None
Drug: None
Personal:
Living: with family
Employment: Not employed
Family History
Family History: Other (Noncontributory)
Review of Systems
Review of Systems
Allergies reviewed?: Yes
All Other Systems: ROS reviewed and negative except as documented in HPI and ROS
Phy Exam
Physical Exam
Physical Exam:
GEN: Well appearing, NAD, WDWN
HEENT: Oral mucosa moist, no scleral icterus
Cardiac: Regular rate
Lung: No respiratory distress, no tachypnea
Abdomen: Soft, focal right upper quadrant tenderness with borderline positive Marina sign, no rigidity
MSK: No gross deformity or injuries
Skin: Good color, no pallor or jaundice, no rashes
Neuro: AO x3, moves all extremities freely
Psych: Calm, cooperative
Course
Orders/Labs/Results
Orders:
Orders
07/12/25 16:52
Test Result ONCE
07/12/25 16:56
Complete Blood Count/With Diff Urgent
Comprehensive Metabolic Panel Urgent
HCG, Serum Qualitative Screen Urgent
07/12/25 18:56
Lactated Ringers [Lr] 1,000 ml IV 125 mls/hr
Piperacillin/Tazo 3.375 Gram [Zosyn] 3.375 gram in 50 ml IV NOW
07/12/25 19:05
HYDROmorphone [Dilaudid] 0.5 mg IV NOW STA
Ondansetron Injectable [Zofran] 4 mg IV NOW STA
07/12/25 19:21
Admit/Transfer Patient As Directed
Co-Sign Provider:
Level of Care: Observation services
Assign to:: Medical/Surgical
Physician / Group: Bassam Whitlock/general surgery service
Diagnosis: acute cholecystitis
07/12/25 19:22
PRN Pain Medication Management As Directed
May give lesser potent ordered pain med per pt: Yes
preference::
Protocol:: Medication orders for pain may be administered in a
manner that supports deferring to patient preference
when the pt is:
- Requesting an ordered lesser potent pain medication.
Least to most potent pain medications are defined
as: acetaminophen < NSAID < tramadol < opioids
(morphine, oxycodone, hydromorphone).
- Requesting a lesser dose of the same medication IF
ORDERED.
- Requesting a less intrusive route of administration
if both routes are prescribed by the provider (PO <
IV).
07/12/25 19:30
Code Status As Directed
Resuscitation Status: Full Code
07/12/25 20:53
HYDROmorphone [Dilaudid] 0.5 mg IV Q4HPRN PRN
Ondansetron Injectable [Zofran] 4 mg IV Q6HPRN PRN
07/12/25 20:53
Activity As Directed
Activity Level: Out of Bed-Early Mobility
Anti-embolism (KRYSTAL) Hose As Directed
Type: Thigh high
Bladder Scan As Directed
Follow Bladder Retention/Intermittent Cath Algorithm?: Yes
Frequency: Per Retention Algorithm
Intake/ Output As Directed
Frequency: Per unit guidelines
Pneumatic Compression Sleeves As Directed
Type: Thigh high
Straight Cath As Directed
Frequency: Per Retention Algorithm
Additional Instructions: straight cath as needed per acute urinary retention algorithm for 24 hrs
Additional Instructions: for bladder scan greater than 400 mL
Vital Signs As Directed
Frequency: Per unit guidelines
DX Deep Vein Thrombosis Video Routine
07/13/25 02:00
Piperacillin/Tazo 3.375 Gram [Zosyn] 3.375 gram in 50 ml IV Q6H
07/13/25 Breakfast
NPO
Allow oral meds: No
Allow clear liquids: No
NPO with Ice Chips: Yes
NPO for procedure after (time): 0300
Abnormal Lab Results
07/12/25
16:56
WBC 4.4 L 10^3/uL
(4.8-10.8)
AST 90 H U/L
(14-36)
ALT 55 H U/L
(0-35)
07/12/25 16:56
07/12/25 16:56
Vital Signs
Initial and Last Documented VS:
Initial Vital Signs
Temp Pulse Resp BP Pulse Ox
97.8 F 78 18 124/75 96
07/12/25 16:48 07/12/25 16:48 07/12/25 16:48 07/12/25 16:48 07/12/25 16:48
Last Documented Vital Signs
Temp Pulse Resp BP Pulse Ox
97.8 F 72 16 116/80 96
07/12/25 16:48 07/12/25 19:30 07/12/25 19:30 07/12/25 19:30 07/12/25 19:30
MDM/Problems Addressed
MDM/Problems Addressed:
Patient does have mild transaminitis today supporting worsening biliary disease. Discussed case with general surgery who will admit the patient to the surgery service for plan for lap tommy in the morning. Will start IV antibiotics
*Pulse Oximetry
SaO2: 96
Oxygen Mode of Delivery: Room air
Patient hypoxic: no
*Critical Care Note
Total Time (30-74mins, 75-104mins- exclusive of procedures): Not Applicable
ED Attending Note
-
Portions of this chart may have been created with voice recognition software.� Occasional wrong word or��sound alike� substitutions may have occurred due to the inherent limitations of voice recognition software.
Discharge Plan
Departure
Patient Disposition: Admit
Date of Disposition: 07/12/25
Time of Disposition: 19:02
Admit to: Med/Surg
Presentation/result/management discussed w/ accepting MD/DO: Hospitalist
Discharge Problem:
Biliary colic
Interventions
Interventions:
*Risk Screen - Suicide Last Done: 07/12/25 16:48
*General Assessment Last Done: 07/12/25 16:48
*Neglect/Abuse Screening Last Done: 07/12/25 16:48
*ED- Fall Risk Assessment Last Done: 07/12/25 19:19
*ED COVID-19 Vaccine History Last Done: 07/12/25 19:19
*Nursing Disposition Last Done: 07/12/25 20:47
LX-[id number]-[id number] Assessment Last Done: 07/12/25 19:31
Discharge Date and Time
Discharge Date/Time: 07/12/25 20:48
[2025-07-12 19:19] VITALS: BMI 31.3
[2025-07-12] MEDS: LR 1000 IV (19:23)
[2025-07-12] MEDS: DILAUDID 0.5 MG IV ×2 (19:24→23:06)
[2025-07-12] MEDS: ZOFRAN 4 MG IV (19:24)
[2025-07-12] MEDS: ZOSYN 50 IV (19:26)
[2025-07-12 19:30] VITALS: BP 116/80
--- NOTE | 2025-07-12 21:15 | HPS.HSE ---
Addendum entered and electronically signed by Bassam Whitlock MD 07/13/25 10:09:
I saw and examined the patient independently.
The [employer] Professor's note was reviewed and I agree with the note, assessment and plan except where noted below.
Comment: This is a 34-year-old female who Harshal presents to our hospital with postprandial right upper quadrant pain. She was seen here just a few days ago with similar symptoms. Her MRI was concerning for cholecystitis however her symptoms had
otherwise completely abated so we elected to plan for outpatient management however she has had recurrent symptoms concerning for ongoing cholecystitis.
Will plan for a laparoscopic cholecystectomy with cholangiogram.
N.p.o., IV fluids, IV antibiotics.
Risks/Benefits/Alternatives, expected postoperative course and possible complications (bleeding, infection, injury to surrounding structures, acute/chronic pain) discussed at length. Patient wishes to proceed with surgery. All questions answered.
Consent obtained.
I spent 75 minutes in total for the care of this patient today including direct patient care and counseling, reviewing labs, imaging, coordination of care, as well as documentation.
Original Note:
Family Physician
-
Family Physician: Precious Ness
Chief Complaint
-
abdominal pain
History of Present Illness
This is a very pleasant 34 year old female who is here with her mother due to recurrent abdominal pain. She was just here 07/10/25 for similar presentation with epigastric pain and nausea radiating to RUQ and her back. She was found to have a dilated
CBD to 10 mm and a contracted gallbladder. MRCP concerning for gangrenous cholecystitis. General surgery evaluated and discussed options with patient who decided to self monitor her symptoms while at home since her symptoms abated while here.
Unfortunately she ate avocado toast with eggs today and her symptoms returned even worse than before she mentions. PMH includes since May with continuing breast feeding after uncomplicated vaginal , anxiety/depression. She is
afebrile with mild elevated transaminitis. She is breast feeding but plans on pump+dump since she has enough supply at home.
Medical History
Past Medical History
Past Medical History: Reports Psychiatric (anxiety/depression ())
Past Surgical History: Reports Tonsilectomy (08/07/22)
Additional Past Surgical History:
Childbirth x3 (most recent May 2025)
Social History
Tobacco: Non-smoker
Alcohol: None
Drug: None
Personal:
Living: With Family
Employment: Not Employed
Family History
Family History: Other (sister with gallbladder disease)
Allergies / Home Medications
Allergies reflects when Allergies were last updated in [facility].
Home Medications with original date entered in [facility]
Allergy/Medication List:
Allergies
Allergy/AdvReac Type Severity Reaction Status Date / Time
moxifloxacin (From Vigamox) Allergy painfull-eye Verified 07/10/25 02:56
stopped
moving
Home Medications
calcium 600 mg (as carbonate)-vitamin D3 10 mcg (400 unit) tablet (Calcium 600 + D(3)) 1 tab PO DAILY Supplement 07/10/25
sertraline 50 mg tablet (Zoloft) 50 mg PO DAILY@1200 Mental Health 07/10/25
Review of Systems
-
History Source: Patient, Family and Coordinated Provider
A 12 point ROS was completed and negative except as noted: Yes
Constitutional: Reports No Symptoms
EENT: Reports No Symptoms
Respiratory: Reports No Symptoms
Cardiac: Reports No Symptoms
Abdomen/GI: Reports Abdominal Pain and Nausea
: Reports No Symptoms
Musculoskeletal: Reports No Symptoms
Skin: Reports No Symptoms
Neurological: Reports No Symptoms
Endocrine: Reports No Symptoms
Hematologic/Lymphatic: Reports No Symptoms
Psych: Reports No Symptoms
Physical Exam
Vital Signs
Vital Signs
Temp Pulse Resp BP Pulse Ox
97.8 F 72 16 116/80 96
07/12/25 16:48 07/12/25 19:30 07/12/25 19:30 07/12/25 19:30 07/12/25 19:30
Physical Exam
General: Well Developed, Well Nourished and Comfortable
HEENT: NormoCephalic, Moist mucous membranes, Atraumatic and PERRLA
Respiratory: Clear and Non Labored Respirations
Cardiac: S1/S2 and Regular Rhythm
Breast: Deferred by me
GI: Soft and Tender
Rectal: Deferred by Provider
Genito-urinary: Clear Urine and No costovertebral tender
Musculoskeletal: No Clubbing, No Cyanosis and No Edema
Skin: Warm and Dry
Neuro: Awake, Alert, AO x 3, No Motor Deficits and Nonfocal/grossly intact
Hematologic/Lymphatic: No Lymphadenopathy
Psych: Calm
Laboratory Results
-
07/12/25 16:56
07/12/25 16:56
Laboratory Results
Total Bilirubin 0.6 mg/dl (0.2-1.3) 07/12/25 16:56
AST 90 U/L (14-36) H 07/12/25 16:56
ALT 55 U/L (0-35) H 07/12/25 16:56
Alkaline Phosphatase 93 U/L (38-126) 07/12/25 16:56
Data Reviewed
-
Diagnostic Radiology: Report Reviewed by me
Lab Data: Labs Reviewed by me
Old Records: Reviewed
Impression/Plan
-
IMPRESSION: acute biliary colic
PLAN: This is a very pleasant 34 year old female who is here with her mother due to recurrent abdominal pain. She was just here 07/10/25 for similar presentation with epigastric pain and nausea radiating to RUQ and her back. She was found to have a
dilated CBD to 10 mm and a contracted gallbladder. MRCP concerning for gangrenous cholecystitis. General surgery evaluated and discussed options with patient who decided to self monitor her symptoms while at home since her symptoms abated while
here. Unfortunately she ate avocado toast with eggs today and her symptoms returned even worse than before she states. PMH includes since May with continuing breast feeding after uncomplicated vaginal , anxiety/depression. She is
afebrile with mild elevated transaminitis. She is breast feeding but plans on pump+dump since she has enough supply at home.
*Acute biliary colic: NPO, Zofran, dilaudid IV, Zosyn IV,
*Elevated transanimates: repeat in am.
*Anxiety/depression: Resume Zoloft post op
*DVT prophylaxis: SCDS, TEDS oob ambulate
*Disposition: General surgery service.
[2025-07-12 23:30] VITALS: BP 134/89
[2025-07-13] VITALS (13 sets, daily range): BP systolic 111–137; BP diastolic 57–89
--- NOTE | 2025-07-13 00:48 | PTCARENOTE ---
07/12/20:47 pt rec'vd from ER, ambulated to scale, used restroom. IVF infusing. Family at the bedside, oriented to unit.
[2025-07-13] MEDS: ZOSYN 50 IV ×3 (01:49→20:12)
[2025-07-13] MEDS: MELATONIN 5 MG PO (02:31)
[2025-07-13] MEDS: ZOFRAN 4 MG IV ×2 (06:40→18:22)
[2025-07-13 07:16] LABS: ALT (SGPT) 1440 U/L (0-35); AST (SGOT) 2239 U/L (14-36); Albumin 3.8 g/dl (3.5-5.0); Alkaline Phosphatase 108 U/L (38-126); Total Protein 6.3 g/dl (6.3-8.2)
--- NOTE | 2025-07-13 10:10 | W.SUR.PREOP ---
Pre-Operative Surgical Note
-
I have examined this patient prior to the performance of the scheduled procedure.
The patient's condition is unchanged from the time of the current History and
Physical and the patient is able to undergo the scheduled procedure.
[2025-07-13] MEDS: LR 1000 IV (10:56)
--- NOTE | 2025-07-13 10:58 | CM ---
Reviewed the chart notes and spoke with the patient at the bedside. The patient is admitted under observational status. The observational letter was provided and explained. The patient had no questions with regards to the letter.
The patient anticipates going to the OR today for a lap tommy. The patient resides with her spouse and three young children in a three story home with two steps to enter. The patient reports no DME/VN/SNF in the past. The patient confirmed her
pharmacy of choice is [facility]. CM continues to be available to patient/family and is monitoring medical plan for needs at discharge.
Plan: Discharge to home when medically stable. No needs anticipated at this time.
--- NOTE | 2025-07-13 13:07 | PTCARENOTE ---
Telephone report given to DISTILLERY WORKERGURMEET Chaudhari @12:55, instructed to tube Zosyn to OR tube station #[id number] and cap IV; patient voided, breast pumped (and dumped), and transported via bed with chart @13:15.
--- NOTE | 2025-07-13 14:58 | W.IMMPOSTOP ---
Surgical Immed Post Op Note
-
Primary Surgeon: Bassam Whitlock MD
Assisting Surgeon: None
Pre-op Diagnosis: Acute cholecystitis
Post-op Diagnosis: Choledocholithiasis
Procedure Performed:
1. Laparoscopic cholecystectomy with cholangiogram
2. Laparoscopic transcystic common bile duct exploration
Anesthesia Type: General
Specimen / Cultures: Gallbladder and contents
Estimated Blood Loss: 7 cc
Complications: None
Operative Findings: Fairly normal-appearing gallbladder, mild inflammation noted in the cystic triangle. Critical view of safety obtained. Ductotomy was made and a small cholesterol gallstone was milked back through the opening and removed. A
cholangiogram was performed which demonstrated a dilated common bile duct and nonfilling of the duodenum. The cholangiocatheter was gently advanced into the duodenum under fluoroscopy and allowed to dilate the sphincter. A snowplow maneuver was
used to push and flush any sludge or stones into the duodenum. A completion cholangiogram demonstrated free flow of contrast from the common bile duct into the duodenum. The duct was ligated with a clip followed by 0 PDS Endoloop.
POST OP PLAN:
Imaging: None
Labs: Routine AM, lipase
Diet: Advance to Regular as tolerated
Analgesia: Tylenol 650mg q6 Emily, Toradol as needed, Dilaudid 0.5mg q2h PRN
Neuro/vascular checks: Per unit protocol
AC/AP: Hold Therapeutic AC, Ok for DVT PPx
Activity: Ad Nydia
Wound/Incisions/Drains: Routine
Abx: None, can stop on discharge.
Dispo: RNF, provide the patient is clinically well and has no evidence of pancreatitis, anticipate discharge home tomorrow
--- NOTE | 2025-07-13 15:01 | OR.RPT ---
Operative Report
Operative Report
Patient Name: Li Saenz
: 1990
Date of Operation: 07/13/2025
Preoperative Diagnosis: Acute cholecystitis
Postoperative Diagnosis: Choledocholithiasis
Procedure(s):
Laparoscopic Cholecystectomy with Cholangiogram
Laparoscopic transcystic common bile duct exploration (83222)
Surgeon(s):
Dr. Whitlock
Screening Specialist(s):
DESIREE Muñoz
Anesthesia: General
Estimated Blood Loss: 7 cc
Urine Output: None
Drains/Lines/Implants: None
Specimens:
1. Gallbladder and contents
HPI/Surgical Indications:
This is a 34-year-old female who presents with recurrent postprandial right upper quadrant abdominal pain, in the setting of a recent attack earlier this week. Imaging was concerning for 'gangrenous cholecystitis', but as her pain resolved she was
discharged home but re-presented on 07/12/2025 with similar symptoms. Exam, labs and imaging are consistent with acute cholecystitis. Risks/Benefits/Alternatives were discussed at length, and the patient agreed to proceed with surgery.
Operative Findings: Fairly normal-appearing gallbladder, mild inflammation noted in the cystic triangle. Critical view of safety obtained. Ductotomy was made and a small cholesterol gallstone was milked back through the opening and removed. A
cholangiogram was performed which demonstrated a dilated common bile duct and nonfilling of the duodenum. The cholangiocatheter was gently advanced into the duodenum under fluoroscopy and allowed to dilate the sphincter. A snowplow maneuver was
used to push and flush any sludge or stones into the duodenum. A completion cholangiogram demonstrated free flow of contrast from the common bile duct into the duodenum. The duct was ligated with a clip followed by 0 PDS Endoloop.
Procedure Description:
The patient was brought to the Operating Room and placed in the supine position with one arm tucked. Following uneventful induction of general endotracheal anesthesia, an orogastric tube was placed. The abdomen was prepped and draped in the usual
sterile fashion. A timeout was performed confirming the procedure, consent, and that IV antibiotics were infused and sequential compression devices were confirmed to be on. The abdomen was entered using a left subcostal Veress technique which
required a single pass followed by a 5 mm right upper quadrant Optiview trocar. Pneumoperitoneum to 15 mmHg pressure was obtained without difficulty and we confirmed that no injury had occurred during our entry. The patient was positioned in
reverse Trendelenberg and rotated with the right side up slightly. Two 5 mm trocars were then placed along the right subcostal margin, followed by a 12 mm port in the epigastrium. The gallbladder was identified and appeared fairly normal. A
locking grasping forceps was placed on the fundus of the gallbladder where it was then retracted cephalad and to the right. Using appropriate grasping instruments, the peritoneum overlying the triangle of Calot was incised and extended superiorly on
both the anterior and posterior gallbladder milan. The infundibulum was dissected off the cystic plate. The cystic triangle was dissected until a critical view of safety was achieved. There was some mild inflammation in the triangle. The cystic
artery was medialized, dissected and controlled with 2 proximal clips and 1 distal. The cystic duct/gallbladder junction in turn was identified, dissected circumferentially and a clip was placed. A ductotomy was made and a cholangiocatheter on an
Craven clamp was inserted into the cystic duct. A C-arm was draped and brought into the field. An intra-operative cholangiogram was performed and was noted to have:
No overt filling defects in the biliary tree, but there was
Significant biliary dilation, and no flow of contrast into the duodenum.
Otherwise, the biliary anatomy appeared normal.
Under fluoroscopic guidance the catheter was gently advanced through the sphincter of Oddi into the duodenum and allowed to dilate the sphincter. A snowplow maneuver was performed pushing and flushing what ever sludge was in the common bile duct
into the duodenum. A completion cholangiogram confirmed free flow of contrast from the common bile duct into the duodenum. The catheter was then removed and the cystic duct was controlled with a clip followed by a 0 PDS Endoloop. After ensuring
both the artery and duct were divided, the gallbladder was freed from the liver using electrocautery. There was some spillage of bile from our duct anatomy and 1 cholesterol gallstone which was suctioned up, but no gross spillage of stones. The
gallbladder bed was inspected and excellent hemostasis was obtained. There was a posterior cystic artery along the lateral edge of the gallbladder which was clipped. The gallbladder was extracted through the 12 mm trocar site using an endocatch
bag. The abdomen was again irrigated and excellent hemostasis was assured. All remaining trocars were then removed and the pneumoperitoneum was evacuated. The 12 mm trocar site was closed using 0 PDS suture. All trocar sites were closed at the
skin level using 4-0 Monocryl followed by Dermabond. Overall, the patient tolerated the procedure well and was taken to the Recovery Room postoperatively in stable condition.
I was the attending physician and performed the procedure with assistance from the VP DATA above. I was present for all portions of the case.
Bassam Whitlock MD
[2025-07-13] MEDS: ZOSYN IV (15:12)
[2025-07-13] MEDS: DILAUDID 0.25 MG IV ×3 (15:23→15:49)
--- NOTE | 2025-07-13 16:40 | PTCARENOTE ---
Telephone report received from DISK SHARPENER Grey; patient arrived in bed with IVF infusing @16:40; 5 lap sites with surgical glue c/d/i; VSS.
[2025-07-13] MEDS: MIRALAX 17 GRAMS PO (17:17)
[2025-07-13] MEDS: ZOLOFT 50 MG PO (20:12)
[2025-07-13] MEDS: COMPAZINE 5 MG IV (20:13)
[2025-07-13] MEDS: TORADOL 15 MG IV (20:13)
[2025-07-14] MEDS: ZOSYN 50 IV ×2 (02:47→08:16)
[2025-07-14 03:09] VITALS: BP 123/75
[2025-07-14] MEDS: TORADOL 15 MG IV (04:40)
[2025-07-14 06:40] LABS: Hematocrit 40.6 % (37.0-47.0); Hemoglobin 13.6 g/dL (12.0-16.0); Mean Corp Hgb Conc. 33.5 g/dL (33.0-37.0); Mean Corpuscular Volume 92.1 fL (81.0-99.0); Platelet Count 209 10^3/uL (130-400); Red Cell Dist. Width 11.6 % (11.5-14.5)
[2025-07-14 07:34] LABS: Albumin 4.0 g/dl (3.5-5.0); Alkaline Phosphatase 176 U/L (38-126); Blood Urea Nitrogen 9 mg/dl (7-17); Calcium 9.3 mg/dl (8.4-10.2); Carbon Dioxide 24 mmol/L (22-30); Chloride 109 mmol/L (98-107); Estimated Creatinine Clearance 113 ml/min; Glucose 87 mg/dl (70-99); Lipase 126 U/L (23-300); Potassium 4.4 mmol/L (3.5-5.1); Sodium 139 mmol/L (135-145); Total Protein 6.5 g/dl (6.3-8.2); eGFR > 60.00
[2025-07-14 07:35] VITALS: BP 109/68
[2025-07-14 07:48] LABS: AST (SGOT) 1272 U/L (14-36)
--- NOTE | 2025-07-14 08:05 | W.PN.GS2 ---
Addendum entered and electronically signed by Bassam Whitlock MD 07/14/25 08:33:
I saw and examined the patient independently.
The resident's documentation was reviewed and I agree with the note, assessment and plan except where noted below.
Comment: 34-year-old female postoperative day 1 from laparoscopic cholecystectomy with cholangiogram and transcystic common bile duct exploration. Doing well, expected postoperative course. Lipase normal, AST downtrending, bilirubin up slightly.
Discussed staying for repeat blood work versus discharge home and outpatient blood work. The patient felt comfortable with the latter.
Will discharge patient this morning if she can tolerate breakfast.
Original Note:
Today's Communication / Plan
-
Patient ready for discharge today with outpatient follow up labs.
Assessment / Plan
-
Assessment
POD1 s/p lap cholecystectomy w/ cholangiogram and lap trans cystic bile duct exploration
Elevated AST 1272 U/L trending down, ALT pending
Bilirubin 1.9 mg/dl up from 1.5 mg/dl yesterday
Plan
Patient ready for discharge today with outpatient repeat labs to trend liver enzymes.
Subjective Data
-
Date of Service: July 14, 2025
Patient is a 34 yo female who presented with RUQ pain and biliary colic s/p lap cholecystectomy w/ cholangiogram and lap trans cystic bile duct exploration.
Patient seen this morning at the bedside. Patient is feeling well, denies N/V, is drinking fluids but hasn't eaten yet. Is hungry for breakfast. No BM. Pain is a 1/10 well controlled with Motrin.
Objective Data
-
Intake and Output
07/13/25 07/14/25 07/15/25
06:59 06:59 06:59
Intake Total 1040 / 1040 1630 / 1630
Balance 1040 / 1040 1630 / 1630
Intake:
Oral fluids 240 / 240 480 / 480
IV fluids (Total) 750 / 750 1000 / 1000
normosol 100 / 100
IV piggybacks 50 / 50 150 / 150
Other:
Number of approximated MODERATE 3 3
amounts of urine
Vital Signs
Temp Pulse Resp BP Pulse Ox
98.1 F 49 18 123/75 97
07/14/25 03:09 07/14/25 03:09 07/14/25 03:09 07/14/25 03:09 07/14/25 03:09
Lab Results
07/14/25 05:46
07/14/25 05:46
Calcium 9.3 mg/dl (8.4-10.2) 07/14/25 05:46
Total Bilirubin 1.9 mg/dl (0.2-1.3) H 07/14/25 05:46
Direct Bilirubin 0.9 mg/dl (0.0-0.4) H 07/13/25 05:41
AST 1272 U/L (14-36) H* 07/14/25 05:46
ALT 1440 U/L (0-35) H* 07/13/25 05:41
Alkaline Phosphatase 176 U/L (38-126) H 07/14/25 05:46
Total Protein 6.5 g/dl (6.3-8.2) 07/14/25 05:46
Albumin 4.0 g/dl (3.5-5.0) 07/14/25 05:46
Physical Exam
-
General: not in distress, comfortable
Abdomen: non-tender, non-distended, well approximated surgical wounds
Neuro: AAOx3
[2025-07-14 08:20] LABS: ALT (SGPT) 1736 U/L (0-35)
[2025-07-14] MEDS: TYLENOL 1000 MG PO (08:23)
--- NOTE | 2025-07-14 10:04 | W.DCSUMMARY ---
Discharge Summary
Discharge Data
Date of Admission: 07/12/25
Date of Discharge: 07/14/25
-
Pending Results: No
Hospital Course
Discharging Physician : Bassam Whitlock MD
Disposition : Home
Primary care physician : Precious Ness
Principal Discharge diagnosis : biliary colic, acute cholecystitis
Chronic Discharge diagnosis :
Psychiatric (anxiety/depression ())
Tonsilectomy
Hospital Course :
Patient is a 34-year-old female who presented to our hospital with postprandial right upper quadrant pain. She was seen here recently on 07/10/2025 with similar symptoms. At that time, patient had an US and subsequently and MRI of the abdomen with
MRCP that was concerning for 'gangrenous cholecystitis' as well as common bile duct dilation. However, her symptoms had otherwise subsided so it was decided to follow-up with outpatient management. Patient had recurring symptoms on 07/12 and returned
to the hospital via ambulance. Exam, labs and imaging were consistent with acute cholecystitis. On 07/13, patient underwent a successful laparoscopic cholecystectomy with cholangiogram and a laparoscopic transcystic common bile duct exploration with
Dr. Bassam Whitlock. Patient was put under general anesthesia for the procedure. Specimens were sent to pathology, path is still pending. Postoperatively, patient is doing well and experiencing the expected postoperative course. On labs this
morning, AST and ALT are still elevated, AST is downtrending. Total bilirubin is slightly elevated. Lipase WNL. Discussed with patient the option to stay to recheck blood work here, but patient prefers to be discharged and have it done outpatient
to trend liver enzymes. Patient has been tolerating fluids and tolerated breakfast this morning. Postop patient has been urinating without difficulty, but has not had a bowel movement. Patient states that the pain is manageable with Motrin and
rated it a 1/10 on the pain scale. Patient will be discharged today, 07/14, with plan for repeat outpatient blood work as well as post-surgical follow-up in the office.
Important imaging findings :
US abdomen 07/10/2025
[facility]. Young Lori, MD
IMPRESSION:
1. Normal hepatic parenchyma, without focal liver masses where seen. Smooth capsular contours. Hepatopetal portal venous flow.
2. The gallbladder is fully contracted, precluding evaluation. However, contraction of the gallbladder essentially excludes the diagnosis of acute cholecystitis.
3. Mild extrahepatic ductal dilation: CBD measures 10 mm. While there is no choledocholithiasis where seen, recommend correlation for serum hyperbilirubinemia and, if present, consider MRCP.
4. Pancreas normal where seen.
5. Normal bilateral kidneys, measuring 9.6 cm on the right and 10.1 cm on the left, without hydronephrosis, nephrolithiasis or solid masses.
6. Normal 12.4 cm spleen, with incidentally noted splenule.
7. Nonaneurysmal abdominal aorta.
Abdomen MRI w MRCP 07/10/2025
Curtis Cordoba MD
IMPRESSION:
1. Abnormal appearance of the gallbladder which may reflect gangrenous cholecystitis in the appropriate clinical context.
2. Common bile duct dilatation without overt filling defects or strictures.
3. Mild splenomegaly.
Procedure findings :
Per Dr. Whitlock's Operative Report from laparoscopic cholecystectomy with cholangiogram and laparoscopic transcystic common bile duct exploration on 07/10: fairly normal-appearing gallbladder with mild inflammation noted in the cystic triangle.
Ductotomy was made and a small cholesterol gallstone was milked back through the opening and removed. A cholangiogram demonstrated a dilated common bile duct and nonfilling of the duodenum. The cholangiocatheter was gently advanced into the duodenum
under fluoroscopy and dilated the sphincter allowing any sludge or stones to be flushed into the duodenum. A completion cholangiogram demonstrated free flow of contrast from the common bile duct into the duodenum.
Discharge Plan
-
Patient Disposition: Home (Routine Discharge)
Discharge Diagnosis/Procedures: Acute cholecystitis. Laparoscopic cholecystectomy with cholangiogram
Condition: Good
Diet: No restrictions
Activity: No strenuous activity
Driving Restrictions: As prior to admission
Bathing Restrictions: OK to Shower
Activity Restrictions/Additional Instructions:
Instructions following Laparoscopic Cholecystectomy
Please call [phone] if you have any questions or concerns after your surgery.
Outpatient blood work has been ordered for you, please obtain it or Sunday or later this week.
Wound Care:
Your incisions are covered with skin glue which will come off on its own in 5-10 days.
It is ok to shower the day after your surgery. Do not scrub the incisions, let soap and water wash over them and pat dry.
� Bruising around your incisions is normal.
� Using ice packs will help minimize this swelling.
� No swimming or soaking incisions for 1 week.
� Your stitches will dissolve and do not need to be removed.
Urinary retention:
If you are unable to urinate 6-8 hours after your surgery, please call [phone] to discuss further management.
Activity:
No heavy lifting more than 15 pounds for the next 3 weeks, then you may gradually lift heavier objects as tolerated by discomfort. Otherwise activity as tolerated by your comfort level.
Pain Management:
Use Tylenol, ibuprofen and ice packs to treat your pain.
� You may take 650 milligrams of Tylenol (Max 3 grams per day) every 6 hours, and 600 mg of ibuprofen also every 6 hours. (you can alternate them every 3 hours)
� You may use an ice pack to your incision as needed.
� If you still have pain not controlled by these measures, take your prescription pain medication as prescribed.
Medications:
You may resume your home medications.
Bowel Medications:
Prescription pain medication can make you constipated. If you take this medication, also take colace 100 mg twice daily (this is over the counter). If this is not sufficient, you may take Miralax (polyethylene glycol) to help move your bowels.
Diet:
After your procedure, there are no dietary restrictions. However, you may notice some loose stools with fatty meals for up to 4 weeks after surgery. If this is the case, please adjust to a low fat diet as needed.
Driving restrictions:
No driving if you are taking prescription pain medication or if you think your normal reaction time and attentiveness has been slowed by your surgery.
Things to Look out for:
Worsening Abdominal pain, fever, jaundice, redness or drainage from incision
Call Doctor for:
Please call if you notice worsening redness or drainage from incision(s) lasting longer than 5 days after your surgery, any foul-smelling drainage from the incision, pain not controlled by pain medications, persistent nausea and vomiting, or for any
fevers greater than 101.3 F. The number for questions/concerns is [phone]
Follow-up:
A follow-up appointment will be scheduled with your surgeon in 3-4 weeks. Please call prior to your appointment if you have any questions or concerns. [phone]
Referrals:
Precious Ness CRNP [Family Provider, General]
Bassam Whitlock MD [Active, Surgical]
Prescriptions:
New
acetaminophen [acetaminophen] 325 mg tablet
650 mg PO Q6HPRN PRN (Reason: mild pain) Qty: 14 0RF
tramadol 50 mg tablet
25 mg PO Q6HPRN PRN (Reason: severe pain/breakthrough pain) Qty: 8 0RF
ibuprofen 600 mg tablet
600 mg PO Q6H PRN (Reason: pain) Qty: 14 0RF
Continued
sertraline [Zoloft] 50 mg Tablet
50 mg PO DAILY@1200
calcium carbonate-vitamin D3 [Calcium 600 + D(3)] 600 mg-10 mcg (400 unit) Tablet
1 tab PO DAILY
Discharge Orders:
Discharge Patient (As Directed); Ordered 07/14/25
Ordered By: Bassam Whitlock
Discharge Date and Time
Discharge Date/Time: 07/14/25 10:04
Print Language: LATVIAN
--- NOTE | 2025-07-14 10:11 | CM ---
Patient has been medically cleared for discharge to home with no additional skilled services. Patient has arranged for transport home.
== END 2025-07-14 10:04 | disposition home or self-care (01) ==
LOC: SDS 20:18
PROVIDERS: Registered Nurse; ATTENDING PHYSICIAN Surgery; EMERGENCY PHYSICIAN Student in an Organized Health Care Education/Training Program; FAMILY PHYSICIAN Nurse Practitioner Adult Health
DX: K80.44 Calculus of bile duct with chronic cholecystitis without obstruction (principal)
CPT/HCPCS: 47564; 74300; 76000; 80053; 80076; 83690; 84703; 85025; 85027; 88304; 99285; A4300

== ENCOUNTER 2025-08-12 11:41 | Day surgery (SDC) | payer BC, SELFPAY ==
[2025-08-12 11:57] VITALS: BMI 29.1
[2025-08-12 11:58] VITALS: BMI 29.1
[2025-08-12 12:00] LABS: HCG, Urine Qualitative Screen Negative
[2025-08-12] MEDS: TYLENOL 1000 MG PO (12:14)
[2025-08-12] MEDS: NORMOSOL-R/PLASMALYTE-A 1000 IV (12:14)
[2025-08-12 13:35] VITALS: BP 120/77; BP 99/73
[2025-08-12 13:50] VITALS: BP 106/71
[2025-08-12 14:00] VITALS: BP 99/64
[2025-08-12 14:15] VITALS: BP 102/61
[2025-08-12 14:30] VITALS: BP 100/58
== END 2025-08-12 14:40 | disposition home or self-care (01) ==
LOC: SDS 11:41
PROVIDERS: ATTENDING PHYSICIAN Obstetrics & Gynecology
DX: N90.60 Unspecified hypertrophy of vulva (principal); O71.4 Obstetric high vaginal laceration alone
CPT/HCPCS: 56800; 81025